=== PATIENT | female | born 1970 | race Two or more races ===

== ENCOUNTER 2024-05-24 10:50 | Emergency (ER) | payer OTHER ==
[2024-05-24 11:13] VITALS: BMI 25.2
[2024-05-24 12:07] LABS: BASO % 0.4 % (0-2.0); HEMATOCRIT 35.1 % (32.4-45.2); LYMPH % 4.7 % (8-40); MCH 30.2 pg (25.7-33.7); MCHC 34.2 g/dl (32.0-36.0); MEAN CELL VOLUME 88.5 fl (80-96); MEAN PLT VOLUME 8.1 fl (7.5-11.1); MONO % 6.1 % (3.8-10.2); NEUT % 88.8 % (42.8-82.8); PLATELET COUNT 288 10^3/uL (134-434); RBC 3.96 M/mm3 (3.60-5.2); RDW 14.6 % (11.6-15.6)
[2024-05-24] MEDS ORDERED: ACETAMINOPHEN INJECTION 100 ML ONE (12:07)
[2024-05-24 12:13] LABS: EPI CELLS 19 /uL (0-25.1); HYALINE CASTS 3 /uL (0-3.1); PH,URINE 5.5 (5.0-8.0); URINE APPEARANCE CLOUDY; URINE BACTERIA >9,000 /uL (0-1359); URINE BILIRUBIN NEGATIVE (NEGATIVE); URINE COLOR YELLOW; URINE GLUCOSE (UA) NEGATIVE (NEGATIVE); URINE KETONE TRACE (NEGATIVE); URINE LEUK ESTERASE 1+ (NEGATIVE); URINE NITRITE POSITIVE (NEGATIVE); URINE PROTEIN 2+ (NEGATIVE); URINE UROBILINOGEN 0.2 mg/dL (0.2-1.0); URINE WBC 313 /uL (0-25.8)
[2024-05-24 12:15] LABS: INR 1.38 (0.83-1.09); PROTHROMBIN TIME (PATIENT) 15.5 SEC (9.7-13.0)
[2024-05-24] MEDS: ACETAMINOPHEN 1000 MG/100 ML BAG IVPB ONE (12:16)
[2024-05-24 12:17] LABS: ACTIVATED PTT 32.3 SECONDS (25.2-36.5)
[2024-05-24] MEDS: LACTATED RINGERS SOLUTION 1000 ML INFUS.BAG IV ONE (12:17)
[2024-05-24] MEDS ORDERED: CEFTRIAXONE 1 GM/50 ML BAG ONE (12:27)
[2024-05-24 12:30] LABS: URINE RBC 87.6 /uL (0-23.9)
[2024-05-24 12:35] LABS: POTASSIUM 3.4 mmol/L (3.5-5.1)
[2024-05-24 12:36] LABS: LACTIC ACID 2.2 mmol/L (0.4-2.0)
[2024-05-24 12:37] LABS: ALBUMIN 3.6 g/dl (3.4-5.0); CALCIUM 9.2 mg/dL (8.5-10.1)
[2024-05-24] MEDS: CEFTRIAXONE 1,000 MG in DEXTROSE 5%-WATER - 50 ML IVPB ONE (12:37)
[2024-05-24 12:38] LABS: BLOOD UREA NITROGEN 19.6 mg/dL (7-18); MAGNESIUM 1.9 mg/dL (1.8-2.4)
[2024-05-24 12:41] LABS: ANISOCYTOSIS 0; CREATININE 1.5 mg/dL (0.55-1.3); HELMET CELLS 0; HOWELL-JOLLY BODIES 0; MACROCYTOSIS 0; OVALOCYTE 0; PHOSPHOROUS 1.7 mg/dL (2.5-4.9); ROULEAU 0; SICKELED CELLS 0; TARGET CELLS 0; TEAR DROP CELLS 0; TOXIC GRANULATION 0
[2024-05-24 12:42] LABS: TOT PROT 7.7 g/dl (6.4-8.2)
[2024-05-24] MEDS ORDERED: NAPH,MB-DB/K PH,MBDB POWDER PACKET ONE (13:02)
[2024-05-24] MEDS ORDERED: POTASSIUM CHLORIDE TABS 20 MEQ TABLET.ER (FP) PO ONE (13:02)
[2024-05-24] MEDS ORDERED: PENICILLIN G BENZATHINE 1,200,000 UNIT/2 ML PFS IM ONE (13:05)
[2024-05-24] MEDS: PENICILLIN G BENZATHINE 1,200,000 UNIT/2 ML PFS IM ONE (13:13)
[2024-05-24] MEDS: NAPH,MB-DB/K PH,MBDB POWDER PACKET PO ONE (13:14)
[2024-05-24] MEDS: POTASSIUM CHLORIDE TABS 20 MEQ TABLET.ER (FP) PO ONE (13:14)
[2024-05-24 15:45] LABS: POTASSIUM 3.5 mmol/L (3.5-5.1)
[2024-05-24 15:46] LABS: CALCIUM 8.4 mg/dL (8.5-10.1)
[2024-05-24 15:47] LABS: BLOOD UREA NITROGEN 15.4 mg/dL (7-18)
[2024-05-24 15:50] LABS: CREATININE 1.4 mg/dL (0.55-1.3)
[2024-05-24 16:10] VITALS: BP 152/81; PULSE 115; RESP 18; TEMP 99.5
== END 2024-05-24 16:15 | disposition home or self-care (01) ==
LOC: JER 10:50
PROC: 3E03329 Introduction of Other Anti-infective into Peripheral Vein, Percutaneous Approach (ICD-10-PCS; principal; 2024-05-24)
PROC: 3E033NZ Introduction of Analgesics, Hypnotics, Sedatives into Peripheral Vein, Percutaneous Approach (ICD-10-PCS; 2024-05-24)
PROC: 3E02329 Introduction of Other Anti-infective into Muscle, Percutaneous Approach (ICD-10-PCS; 2024-05-24)
DX: J02.0 Streptococcal pharyngitis (principal); N39.0 Urinary tract infection, site not specified; R50.9 Fever, unspecified; R53.1 Weakness; R51.9 Headache, unspecified; M79.10 Myalgia, unspecified site; R30.0 Dysuria; Z20.822 Contact with and (suspected) exposure to COVID-19
CPT/HCPCS: 0241U-QW; 36415; 71045-TC-FY; 80048; 80053; 81003; 83605; 83735; 84100; 84484; 85025; 85610; 85730; 86850; 86900; 86901; 87040; 87086; 87186; 87651; 93005; 93010; 99285-25; J0131